=== PATIENT | male | born 1990 | race Caucasian/White ===

== ENCOUNTER 2017-03-05 13:17 | Emergency (ER) | payer OTHER ==
[~2017-03-05] VITALS: Ht 180.3 cm; Wt 101.8 kg
[2017-03-05 13:28] VITALS: TEMP 36.7; Ht 180.3 cm; Wt 101.8 kg
[2017-03-05] MEDS ORDERED: LIDO/EPINEPHRINE/SOD BICARB 20 ML VIAL INFIL ONE (14:05)
[2017-03-05] MEDS ORDERED: MULT-506 PO (14:11)
[2017-03-05] MEDS ORDERED: LIDOCAINE/EPINEPHRINE 1% 20 ML VIAL INFIL ONE (14:15)
--- NOTE | 2017-03-05 15:13 | EMERGENCY ROOM VISIT NOTE ---
ED Visit Note First contact with patient: 13:30 CHIEF COMPLAINT: Infection of the upper back, abscess HISTORY OF PRESENT ILLNESS: This 26-year-old male patient presents to the emergency department after they noticed a hard, red, tender area on his upper back. Patient states he has had a cystlike structure there for years, but it has never bothered him until about the past few days. It is slowly getting larger, more painful and tender. No fever, chills, or loss of appetite. There has been no drainage from the area. There was no injury to the area preceding the infection. They rate the pain as pressure and 5/10. Tetanus shot is up to date. They have tried heat and ibuprofen with some relief. The patient is not diabetic. The patient has no history of subcutaneous abscesses. REVIEW OF SYSTEMS: A review of systems was performed with positives and pertinent negatives listed in the history of present illness. All other systems were reviewed and are negative. ALLERGIES: None MEDICATIONS: See chart PMH: See chart SOCIAL HISTORY: See chart PHYSICAL EXAM: Vital Signs: Reviewed Nurse's notes, vital signs stable. GENERAL : Pleasant and cooperative, no acute distress, non toxic in appearance, well- developed well-nourished. SKIN: There is an erythematous indurated area on the mid upper back between the shoulder blades which measures about 3 cm in diameter. It is fluctuant but there is no pointing or drainage. There is a zone of inflammation around it but no lymphangitis. No significant cellulitic changes to the skin. Capillary refill less than 2 seconds. MUSCULOSKELETAL: There is no limitation of the range of motion of the upper back. EMERGENCY DEPARTMENT COURSE: I examined the patient. Differential diagnosis includes abscess, cellulitis, infected sebaceous cyst. Verbal consent was obtained to perform the procedure. After saline and Betadine cleansing and to mL of 1% buffered lidocaine with epinephrine anesthesia, the abscess was incised with a number 11 scalpel blade. A large amount of thick purulent material was released with more expressed by pressure. The abscess cavity was further probed with a needle transit bus driver and the deep pocket expressed. The abscess cavity was then copiously irrigated with sterile saline under pressure. The area was then packed with packing. Hemostasis was achieved. The area was cleaned with sterile saline and dressed with bacitracin and a bulky bandage. The patient tolerated the procedure well. The patient was discharged home in stable condition. Problem List Medical Problems: (1) No Known Active Medical Problems Status: Chronic Current/Historical Medications Scheduled Multivitamin (Multivitamin), 1 TAB PO DAILY Allergies Coded Allergies: No Known Allergies (Unverified , 03/05/17) Vital Signs Date Time Temp Pulse Resp B/P (MAP) Pulse Ox O2 Delivery O2 Flow Rate FiO2 03/05/17 15:22 102 18 129/86 94 Room Air 03/05/17 13:28 36.7 101 18 143/83 96 Room Air Medications Administered Medications (Trade) Dose Ordered Sig/Rene Route Start Time Stop Time Status Last Admin Dose Admin Lidocaine/ Epinephrine (Buffered Xylocaine/ Epinephrine 1% Inj) 20 ml STK-MED ONCE INFIL 03/05/17 14:05 03/05/17 14:06 DC 03/05/17 14:05 20 ML Departure Information Impression Primary Impression: Infected sebaceous cyst Dispostion Home / Self-Care Condition GOOD Referrals No Doctor, Assigned (PCP) Shawn Ribera D.O. Patient Instructions ED Abscess K[place], [facility] Additional Instructions Keep the dressing clean and dry, do not remove for the next 24 hours. After that, you may remove the dressing and you may shower as normal, allowing water to run over the wound. Plan to follow-up in the next 2-3 days to have the packing removed and the wound rechecked. Do not remove the packing yourself. Please return to the ER for any worsening problems, including increasing pain, redness, pus drainage, fever/chills, or any other concerns. See a general surgeon if an abscess re-occurs in the same area in the future for consideration of excision of the cyst.
[2017-03-05 15:22] VITALS: BP 129/86; PULSE 102; O2SAT 94
== END 2017-03-05 15:26 | disposition home or self-care (01) ==
LOC: C.EDB 13:19 → C.EDD 15:26
DX: L72.3 Sebaceous cyst (principal)

== ENCOUNTER 2017-03-07 09:50 | Emergency (ER) | payer OTHER ==
[~2017-03-07] VITALS: Ht 180.3 cm; Wt 99.9 kg
[~2017-03-07 09:50] MED LIST: MULT-506 PO
[2017-03-07 09:54] VITALS: BP 134/78; PULSE 97; TEMP 36.7; O2SAT 95; Ht 180.3 cm; Wt 99.9 kg
[2017-03-07] MEDS ORDERED: DIPH-437 PO (10:11)
--- NOTE | 2017-03-08 06:48 | EMERGENCY ROOM VISIT NOTE ---
History First contact with patient: 10:01 Chief Complaint: PACKING REMOVAL Stated Complaint: PACKING REMOVAL Nursing Triage Summary: pt states he had a cyst drained a coule days ago and was told to come back in for the packing to be changed. History of Present Illness The patient is a 26 year old white male who presents to the Emergency Room for removal of packing from a sebaceous cyst. He had a sebaceous cyst drained 2 days ago and was told to return today for packing removal. He denies any fevers or chills. He states his pain has improved significantly. He has been keeping the area clean and protected. No other complaints. Review of Systems Unchanged from previous exam Past Medical/Surgical History Medical Problems: (1) No Known Active Medical Problems Social History Smoking Status: Never Smoker Smokeless Tobacco Use: No Alcohol Use: occasionally Drug Use: none Marital Status: single Housing Status: lives with roommate Occupation Status: [employer] student Current/Historical Medications Scheduled Acetaminophen/Diphenhydramine (Tylenol Pm), 1 TAB PO HS Multivitamin (Multivitamin), 1 TAB PO DAILY Allergies Coded Allergies: No Known Allergies (Unverified , 03/07/17) Physical Exam Vital Signs Date Time Temp Pulse Resp B/P (MAP) Pulse Ox O2 Delivery O2 Flow Rate FiO2 03/07/17 09:54 36.7 97 18 134/78 95 Room Air Pain Rating (0-10): 1.0 Physical Exam Gen.: Well-developed, well-nourished, young white male, in no acute distress. Sitting on a bed. Alert and oriented. Skin:Warm and dry with good turgor. No rashes or lesions. No ecchymosis or erythema. The patient is not diaphoretic. No abrasions. He has a small opening between his shoulder blades over the thoracic spine. Small amount of packing is protruding. No significant erythema. No significant discomfort. No active drainage. Musculoskeletal: Normal motion of the upper and lower extremities. No pain with palpation over the rest of his thoracic or lumbar spine. Medical Decision & Procedures ED Course Patient was educated regarding today's findings. Packing was removed. There is nothing expressible. I do not think additional packing is necessary. Pressure dressing was applied. He'll keep this area clean and covered until it is healed. Return for any worsening pain or signs of infection. If the cyst should recur, he will need to see general surgery to have the cyst wall excised. Tylenol and Motrin every 6 hours as needed for minor discomfort. Medical Decision Possibility of skin abscess versus sebaceous cyst was considered. Impression Primary Impression: Encounter for abscess packing removal Departure Information Dispostion Home / Self-Care Condition GOOD Forms WORK / SCHOOL INSTRUCTIONS, HOME CARE DOCUMENTATION FORM, MOTRIN USE, TYLENOL USE, IMPORTANT VISIT INFORMATION Patient Instructions [id number] Additional Instructions Warm moist compresses to the area several times per day change the dressing as needed for soiling Avoid working out/swelling until wound has fully sealed Follow-up with your PCP or return to the ED for any other concerns Tylenol and Motrin every 6 hours as needed for any mild discomfort If the cyst recurs, follow-up with general surgery for excision of the cyst wall
== END 2017-03-07 10:25 | disposition home or self-care (01) ==
LOC: C.EDB 09:51
DX: Z48.01 Encounter for change or removal of surgical wound dressing (principal)

== ENCOUNTER 2017-10-09 17:29 | Emergency (ER) | payer OTHER ==
[~2017-10-09] VITALS: Ht 182.9 cm; Wt 101.5 kg
[~2017-10-09 17:29] MED LIST changes: +DIPH-437 PO
[2017-10-09 18:01] VITALS: O2SAT 96; Ht 182.9 cm; Wt 101.5 kg
[2017-10-09 18:24] LABS: BASO % 0.2 %; BASO ABS # 0.02 K/uL (0-0.2); EOS ABS # 0.24 K/uL (0-0.5); HEMATOCRIT 44.3 % (42-52); HEMOGLOBIN 16.2 g/dL (14.0-18.0); IG# 0.01 K/uL (0.00-0.02); LYMPH % 29.5 %; LYMPH ABS # 2.36 K/uL (1.2-3.4); MEAN CELL VOLUME 83.1 fL (80-100); MEAN CORPUSCULAR HEMOGLOBIN 30.4 pg (25-34); MEAN CORPUSCULAR HGB CONC 36.6 g/dl (32-36); MEAN PLATELET VOLUME 10.3 fL (7.4-10.4); MONO % 7.9 %; MONO ABS # 0.63 K/uL (0.11-0.59); NEUT % 59.3 %; NEUT ABS # 4.75 K/uL (1.4-6.5); PLATELET COUNT 199 K/uL (130-400); RED CELL DISTRIBUTION WIDTH CV 12.5 % (11.5-14.5); RED CELL DISTRIBUTION WIDTH SD 37.4 fL (36.4-46.3); WHITE BLOOD COUNT 8.01 K/uL (4.8-10.8)
--- NOTE | 2017-10-09 18:27 | EMERGENCY ROOM VISIT NOTE ---
History First contact with patient: 17:38 Chief Complaint: RIB PAIN Stated Complaint: SHOULDER AND RIB PAIN History of Present Illness The patient is a 27 year old male who presents to the Emergency Room with complaints of left shoulder, upper back, and left rib pain that started 2 days ago. Pain is constant, worse with movement and taking a deep breath, 8/10. He has not tried any medications for the pain. He states that he went to see his chiropractor today and was told that some of his ribs were "out of place" so he didn't adjustment, and he did feel a little bit better at the time, but the pain has become worse again. This is a new pain for him, he denies any history of this. He does admit that he works out and has done some heavy lifting this week, though he cannot think of a specific injury. He states that it hurts to take in a deep breath, but he denies any dyspnea on exertion or shortness of breath at rest. He denies any headaches, neck pain or stiffness, back pain, dizziness or passing out, abdominal pain, nausea or vomiting, diarrhea, urinary symptoms, or rash. Review of Systems A complete 10 point review of systems was reviewed with the patient with pertinent positives and negatives as per history of present illness. All else were negative. Past Medical/Surgical History Medical Problems: (1) No Known Active Medical Problems Family History No known family history of heart disease or blood clots Social History Smoking Status: Never Smoker Alcohol Use: occasionally Drug Use: none Marital Status: single Housing Status: lives with roommate Occupation Status: [employer] student Current/Historical Medications Scheduled Multivitamin (Multivitamin), 1 TAB PO DAILY Allergies NKA Physical Exam Vital Signs Date Time Temp Pulse Resp B/P (MAP) Pulse Ox O2 Delivery O2 Flow Rate FiO2 10/09/17 20:24 36.6 85 18 151/88 96 10/09/17 20:22 85 18 151/88 96 Room Air 10/09/17 19:05 85 16 139/94 96 Room Air 10/09/17 18:26 86 10/09/17 18:01 97 Room Air 10/09/17 18:01 96 Room Air 10/09/17 17:35 36.6 88 20 162/87 97 Room Air Physical Exam CONSTITUTIONAL: Pleasant and cooperative. No acute distress. Well appearing and well nourished. HEENT: Normocephalic, atraumatic. Pupils equal, round and reactive to light, EOMI. TMs normal. Pharynx normal. NECK: Supple, full active range of motion without discomfort. RESPIRATORY: Clear to auscultation bilaterally with no wheezing, crackles, rhonchi or stridor. Equal expansion bilaterally. CARDIOVASCULAR: Regular rate and rhythm with no murmurs, rubs or gallops. Normal peripheral perfusion. No edema. CHEST WALL: There is tenderness to palpation of the left upper back around the shoulder blade, as well as the anterior and lateral left chest wall, reproduces complaints. No crepitus. No ecchymosis or swelling. No palpable rib fractures. GASTROINTESTINAL: Soft, nontender, nondistended. No palpable masses or HSM. Bowel sounds present in all quadrants. MUSCULOSKELETAL: Full range of motion of all joints without discomfort. INTEGUMENTARY: No rash or other significant dermatologic conditions noted. NEUROLOGIC: Alert and oriented X 4 with normal affect. Cranial nerves II-XII grossly intact. No focal neurologic deficits noted. Medical Decision & Procedures ER Provider Diagnostic Interpretation: CHEST 2 VIEWS ROUTINE CLINICAL HISTORY: Shortness of breath and chest pain. COMPARISON STUDY: Chest radiograph February 20, 2013. FINDINGS: Lung volumes are normal. No pneumothorax or pleural effusion is noted. Pulmonary vascularity is normal. No consolidation is noted. Cardiomediastinal silhouette is normal. IMPRESSION: No acute cardiopulmonary findings. Laboratory Results 10/09/17 18:15 Red Blood Count 5.33, Mean Corpuscular Volume 83.1, Mean Corpuscular Hemoglobin 30.4, Mean Corpuscular Hemoglobin Concent 36.6, Mean Platelet Volume 10.3, Neutrophils (%) (Auto) 59.3, Lymphocytes (%) (Auto) 29.5, Monocytes (%) (Auto) 7.9, Eosinophils (%) (Auto) 3.0, Basophils (%) (Auto) 0.2, Neutrophils # (Auto) 4.75, Lymphocytes # (Auto) 2.36, Monocytes # (Auto) 0.63, Eosinophils # (Auto) 0.24, Basophils # (Auto) 0.02 10/09/17 18:15 Test 10/09/17 18:15 10/09/17 18:43 White Blood Count 8.01 K/uL (4.8-10.8) Red Blood Count 5.33 M/uL (4.7-6.1) Hemoglobin 16.2 g/dL (14.0-18.0) Hematocrit 44.3 % (42-52) Mean Corpuscular Volume 83.1 fL (80-100) Mean Corpuscular Hemoglobin 30.4 pg (25-34) Mean Corpuscular Hemoglobin Concent 36.6 g/dl (32-36) Platelet Count 199 K/uL (130-400) Mean Platelet Volume 10.3 fL (7.4-10.4) Neutrophils (%) (Auto) 59.3 % Lymphocytes (%) (Auto) 29.5 % Monocytes (%) (Auto) 7.9 % Eosinophils (%) (Auto) 3.0 % Basophils (%) (Auto) 0.2 % Neutrophils # (Auto) 4.75 K/uL (1.4-6.5) Lymphocytes # (Auto) 2.36 K/uL (1.2-3.4) Monocytes # (Auto) 0.63 K/uL (0.11-0.59) Eosinophils # (Auto) 0.24 K/uL (0-0.5) Basophils # (Auto) 0.02 K/uL (0-0.2) RDW Standard Deviation 37.4 fL (36.4-46.3) RDW Coefficient of Variation 12.5 % (11.5-14.5) Immature Granulocyte % (Auto) 0.1 % Immature Granulocyte # (Auto) 0.01 K/uL (0.00-0.02) D-Dimer 320 ug/L FEU (0-500) Anion Gap 8.0 mmol/L (3-11) Est Creatinine Clear Calc Drug Dose 124.3 ml/min Estimated GFR () 105.7 Estimated GFR (Non- 91.2 BUN/Creatinine Ratio 16.0 (10-20) Calcium Level 8.8 mg/dl (8.5-10.1) Total Bilirubin 0.6 mg/dl (0.2-1) Aspartate Amino Transf (AST/SGOT) 24 U/L (15-37) Alanine Aminotransferase (ALT/SGPT) 64 U/L (12-78) Alkaline Phosphatase 84 U/L (45-117) Troponin I < 0.015 ng/ml (0-0.045) Total Protein 8.0 gm/dl (6.4-8.2) Albumin 4.3 gm/dl (3.4-5.0) Globulin 3.7 gm/dl (2.5-4.0) Albumin/Globulin Ratio 1.2 (0.9-2) Urine Color YELLOW Urine Appearance CLEAR (CLEAR) Urine pH 7.5 (4.5-7.5) Urine Specific [place] 1.021 (1.000-1.030) Urine Protein NEG (NEG) Urine Glucose (UA) NEG (NEG) Urine Ketones NEG (NEG) Urine Occult Blood NEG (NEG) Urine Nitrite NEG (NEG) Urine Bilirubin NEG (NEG) Urine Urobilinogen NEG (NEG) Urine Leukocyte Esterase SMALL (NEG) Urine WBC (Auto) 5-10 /hpf (0-5) Urine RBC (Auto) 0-4 /hpf (0-4) Urine Hyaline Casts (Auto) 0 /lpf (0-5) Urine Epithelial Cells (Auto) 5-10 /lpf (0-5) Urine Bacteria (Auto) 1+ (NEG) Medications Administered Medications (Trade) Dose Ordered Sig/Rene Route Start Time Stop Time Status Last Admin Dose Admin Ketorolac Tromethamine (Toradol Inj) 15 mg NOW STAT IV 10/09/17 19:37 10/09/17 19:39 DC 10/09/17 19:46 15 MG ECG Indication: back/shoulder pain, SOB/dyspnea Rate (beats per minute): 83 Rhythm: normal sinus Findings: no acute ischemic change, no ectopy Comparison ECG Date: no prior available Medical Decision CC: Patient presenting with complaint of left upper back and left-sided chest pain Interpretation of Labs: No leukocytosis, no anemia, no significant electrolyte abnormalities, normal renal function, normal liver enzymes. Negative troponin. Negative d-dimer. UA appears more consistent with contaminant than infection. Differential Diagnosis: Includes, but not limited to muscle sprain/strain, muscle spasm, costochondritis, pleuritis, pneumonia, PE, ACS, among others. Medication Reconciliation: I attest that I have personally reviewed the patient' s current medication list. Vital signs review: I reviewed the patient's vital signs and interpret them as follows: T: Afebrile; BP: Hypertensive; HR: Within normal limits; RR: Within normal limits; Pulse Ox: Within normal limits on room air. Blood pressure screening: The patient was found to have an elevated blood pressure, this was felt to be situational due to pain. Summary: Patient was evaluated at bedside, history and physical exam performed. Patient is alert and oriented, no acute distress, resting calmly in stretcher. Patient does have tenderness with palpation of the left upper shoulder blade region and along the left lateral rib cage, reproduces complaint. Lungs are clear with no abnormal lung sounds. Orders were placed at bedside for labs, UA, EKG, chest x-ray to evaluate for cardio pulmonary disease. Patient discussed with Dr. Parada, who agrees with my assessment and plan. Labs reviewed as above, unremarkable. Chest x-ray is negative for any acute process. Patient does describe a pleuritic type left-sided chest pain, he is low risk for PE by PERC rule and d-dimer is negative. I believe PE is very unlikely. He is also very low risk for ACS, and with a negative troponin after constant pain for 2 days. I suspect patient's pain is most likely musculoskeletal in nature, consistent with a costochondritis given reproducible pain with palpation of the chest wall. Patient reassessed multiple times throughout ED stay, he reports improved pain after Toradol. I updated the patient on all results and plan for discharge home, and encouraged him to follow closely with his PCP if his symptoms are not improving. Patient was also given strict return precautions should his symptoms worsen in any way. The patient verbalized understanding of all discharge instructions and was comfortable with the plan. Patient was discharged home in stable condition and ambulatory. Blood Pressure Screening Patient's blood pressure: Elevated blood pressure Blood pressure disposition: Elevated BP felt to be situational Impression Primary Impression: Rib pain on left side Additional Impression: Costochondritis Departure Information Dispostion Home / Self-Care Condition GOOD Referrals TETO BAKER D.O. (PCP) Patient Instructions ED Chest Pain Costochondritis, [facility] Additional Instructions Take it easy for the next few days, no strenuous activity, heavy lifting, or bending/twisting motions, to allow your injury to rest. Alternate heat and ice to the area for comfort. After heat, you may do gentle stretching and massage to the area to help release the pain and muscle tightness. Ibuprofen 600 mg every 6-8 hours as needed for pain. Take with food. You may also take Tylenol 1000 mg every 8 hours as needed for additional pain relief. Follow up with your PCP in the next few days for further management. You may benefit from physical therapy. Please return to the ER if you develop severe worsening pain, shortness of breath, severe dizziness or passing out, coughing up or vomiting blood, fevers > 101.5, numbness or weakness of the arm, or any other concerns. Problem Qualifiers
[2017-10-09 18:43] LABS: ALBUMIN 4.3 gm/dl (3.4-5.0); ALT/SGPT 64 U/L (12-78); AST/SGOT 24 U/L (15-37); BLOOD UREA NITROGEN 18 mg/dl (7-18); CALCIUM 8.8 mg/dl (8.5-10.1); CARBON DIOXIDE 29 mmol/L (21-32); CREATININE 1.11 mg/dl (0.60-1.40); GLUCOSE 93 mg/dl (70-99); POTASSIUM 3.4 mmol/L (3.5-5.1); SODIUM 138 mmol/L (136-145)
[2017-10-09 18:59] LABS: ALKALINE PHOSPHATASE 84 U/L (45-117)
--- NOTE | 2017-10-09 19:15 | DIAGNOSTIC IMAGING REPORT ---
CHEST 2 VIEWS ROUTINE CLINICAL HISTORY: Shortness of breath and chest pain. COMPARISON STUDY: Chest radiograph February 20, 2013. FINDINGS: Lung volumes are normal. No pneumothorax or pleural effusion is noted. Pulmonary vascularity is normal. No consolidation is noted. Cardiomediastinal silhouette is normal. IMPRESSION: No acute cardiopulmonary findings. Electronically signed by: Efrain Royal M.D. 10/09/2017 7:14 PM Dictated Date/Time: 10/09/2017 7:13 PM
[2017-10-09] MEDS ORDERED: KETOROLAC TROMETHAMINE 30 MG/ML VIAL IV STA (19:37)
[2017-10-09 20:24] VITALS: BP 151/88; PULSE 85; TEMP 36.6; O2SAT 96
== END 2017-10-09 20:25 | disposition home or self-care (01) ==
LOC: C.EDB 17:31
DX: R07.81 Pleurodynia (principal); M94.0 Chondrocostal junction syndrome [Tietze]